=== PATIENT | male | born 1965 ===

== ENCOUNTER 2017-05-08 14:56 | Emergency (ER) | payer OTHER ==
[2017-05-08] MEDS: OXYCODONE/ACETAMINOPHEN (5/325) TAB PO (20:36)
[2017-05-08] MEDS: MUPIROCIN 2% 22 GM OINT TOP (20:52)
== END 2017-05-08 23:30 | disposition home or self-care (01) ==
LOC: E/R 23:30
DX: R60.0 Localized edema (principal); I87.2 Venous insufficiency (chronic) (peripheral); L98.491 Non-pressure chronic ulcer of skin of other sites limited to breakdown of skin; I10 Essential (primary) hypertension; F17.210 Nicotine dependence, cigarettes, uncomplicated
CPT/HCPCS: 93970; 99284-25